=== PATIENT | male | born 1950 | race Caucasian/White ===

== ENCOUNTER 2021-10-22 07:49 | Inpatient (IN) | payer MEDICARE ==
[2021-10-22 10:56] VITALS: BMI 32.5
[2021-10-22] MEDS ORDERED: Senokot S 8.6-50 MG TAB PO PRN (12:32)
[2021-10-22] MEDS ORDERED: Ondansetron ODT 4 MG TAB PO PRN (12:32)
[2021-10-22] MEDS: Acetaminophen 325 MG TAB PO PRN (15:36)
[2021-10-22] MEDS: Brimonidine Tartrate 0.2% Ophth Soln 5 ml Bottle EA EYE SCH (20:42)
[2021-10-22] MEDS: Timolol 0.5% Ophth Soln 5 ml Bottle EA EYE SCH (20:42)
[2021-10-22] MEDS: Famotidine 20 MG TAB PO SCH (20:44)
[2021-10-22] MEDS: Apixaban 5 MG TAB PO SCH (20:44)
[2021-10-22] MEDS: Atorvastatin Calcium 40 MG TAB PO SCH (20:45)
[2021-10-23] MEDS: Acetaminophen 325 MG TAB PO PRN (06:12)
[2021-10-23 06:43] LABS: ALT (SGPT) 23 U/L (8-55); AST (SGOT) 43 U/L (5-34); Albumin 3.1 g/dL (3.4-4.8); Alkaline Phosphatase 87 U/L (40-110); Anion Gap 15 mmol/L (10-20); BUN (Urea Nitrogen) 26 mg/dL (8.4-25.7); Bilirubin, Total 1.6 mg/dL (0.2-1.2); Calc. Creatinine Clearance 44 mL/min (70-130); Calcium 9.2 mg/dL (7.8-10.44); Carbon Dioxide 22 mmol/L (23-31); Chloride 93 mmol/L (98-107); Globulin 3.1 g/dL (2.4-3.5); Glucose 102 mg/dL (80-115); Potassium 3.9 mmol/L (3.5-5.1); Protein, Total 6.2 g/dL (5.8-8.1); Sodium 126 mmol/L (136-145)
[2021-10-23 07:17] LABS: #Basophils 0.1 thou/uL (0.0-0.2); #Eosinphils 0.2 thou/uL (0.0-0.7); #Monocytes 0.6 thou/uL (0.11-0.59); #Neutrophils 3.5 thou/uL (1.40-6.50); %Basophils 1.4 % (0.0-1.0); %Eosinophils 3.4 % (0.0-10.0); %Monocytes 8.9 % (0.0-10.0); %Neutrophils 55.3 % (42.0-75.0); Hemoglobin 11.9 g/dL (14.0-18.0); Mean Corpuscular HGB CONC 32.1 g/dL (32.0-36.0); Mean Corpuscular Hemoglobin 30.3 pg (27.0-31.0); Mean Corpuscular Volume 94.4 fL (78.0-98.0); Mean Platelet Volume 9.2 fL (7.4-10.4); Platelet Count 68 thou/uL (130-400); Red Blood Cell (RBC) Count 3.92 mill/uL (4.70-6.10); White Blood Cell (WBC) Count 6.4 thou/uL (4.8-10.8)
[2021-10-23] MEDS: Brimonidine Tartrate 0.2% Ophth Soln 5 ml Bottle EA EYE SCH ×2 (08:46→21:12)
[2021-10-23] MEDS: Timolol 0.5% Ophth Soln 5 ml Bottle EA EYE SCH ×2 (08:47→21:11)
[2021-10-23] MEDS: Famotidine 20 MG TAB PO SCH (08:48)
[2021-10-23] MEDS: Apixaban 5 MG TAB PO SCH ×2 (08:48→21:13)
[2021-10-23] MEDS ORDERED: Lisinopril 10 MG TAB PO SCH (09:00)
[2021-10-23] MEDS ORDERED: Famotidine 20 MG TAB PO SCH (09:00)
[2021-10-23] MEDS: Sodium Chloride 0.9% 1,000 ML IV SCH ×2 (10:51→21:20)
[2021-10-23 11:27] LABS: Hemoglobin A1c 5.7 % (4.0-6.0)
[2021-10-23] MEDS: oxyCODONE 5 MG TAB PO PRN (11:48)
[2021-10-23] MEDS: traMADol HCl 50 MG TAB PO PRN ×2 (15:46→21:12)
[2021-10-23] MEDS: Atorvastatin Calcium 40 MG TAB PO SCH (21:12)
[2021-10-23 21:13] VITALS: BP 91/52
[2021-10-23 22:26] VITALS: TEMP 99.1
[2021-10-24 00:18] LABS: SARS-CoV-2 PCR by NAA Not Detected (NotDetected)
[2021-10-24] MEDS: oxyCODONE 5 MG TAB PO PRN (00:20)
[2021-10-24] MEDS: traMADol HCl 50 MG TAB PO PRN (05:56)
[2021-10-24] MEDS ORDERED: Ondansetron ODT 4 MG TAB SL PRN (10:30)
[2021-10-24] MEDS ORDERED: Apixaban 5 MG TAB PO SCH (21:00)
== END 2021-10-24 12:12 | disposition short-term general hospital (02) | DRG 560 ==
LOC: NAV ACUTE 10:27
PROVIDERS: ADMIT Family Medicine; ATTEND Family Medicine
DX: Z47.1 Aftercare following joint replacement surgery (principal); I27.82 Chronic pulmonary embolism; N17.9 Acute kidney failure, unspecified; I10 Essential (primary) hypertension; R53.81 Other malaise; Z20.822 Contact with and (suspected) exposure to COVID-19; H40.9 Unspecified glaucoma; E78.5 Hyperlipidemia, unspecified; M19.90 Unspecified osteoarthritis, unspecified site; Z96.653 Presence of artificial knee joint, bilateral; Z79.01 Long term (current) use of anticoagulants; Z79.899 Other long term (current) drug therapy
CPT/HCPCS: 36415; 80053; 83036; 85025; 87804; J7050; U0003; U0005